=== PATIENT | female | born 1955 | race African-American/Black ===

== ENCOUNTER 2023-12-06 09:35 | Outpatient (CLI) | payer OTHER | END 2023-12-06 09:37 | disposition home or self-care (01) | LOC: NUCLEAR 09:35 | PROVIDERS: ATTEND Internal Medicine | DX: I65.21 Occlusion and stenosis of right carotid artery (principal); I69.30 Unspecified sequelae of cerebral infarction; I25.10 Atherosclerotic heart disease of native coronary artery without angina pectoris ==

== ENCOUNTER 2023-12-23 07:05 | Outpatient (CLI) | payer OTHER | END 2023-12-23 07:06 | disposition home or self-care (01) | LOC: NUCLEAR 07:05 | PROVIDERS: ATTEND Internal Medicine | DX: I20.9 Angina pectoris, unspecified (principal) | CPT/HCPCS: 78452; 93017; A9500; J0153 ==

== ENCOUNTER 2024-06-22 09:46 | Outpatient (CLI) | payer OTHER | END 2024-06-22 09:51 | disposition home or self-care (01) | LOC: MAMO-SONO 09:46 | PROVIDERS: ATTEND Obstetrics & Gynecology | DX: N60.11 Diffuse cystic mastopathy of right breast (principal); N60.12 Diffuse cystic mastopathy of left breast ==